=== PATIENT | male | born 1965 | race Caucasian/White ===

== ENCOUNTER 2024-09-22 10:57 | Emergency (ER) | payer SELFPAY ==
[2024-09-22 11:00] VITALS: BP 142/85
--- NOTE | 2024-09-22 11:29 | ED.GENMED ---
History of Present Illness
General
Chief Complaint: Blood and Body Fluid Exposure
Source: patient
Time Seen by Provider: 09/22/24 11:16
History of Present Illness
History of Present Illness:
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 The
patient is staying overnight in the hospital and therefore her blood testing is available. Patient denies any symptoms. He is up-to-date on his tetanus.
Past History
Social History
Personal:
Living: with family
Employment: Employed
Phy Exam
Physical Exam
Physical Exam:
GENERAL: Alert , in no apparent distress
NECK: Supple
ENT: mmm
CARDIAC: Regular rate and rhythm .
LUNGS: Clear breath sounds bilaterally, no acute respiratory distress, no wheezes/rales/rhonchi
NEUROLOGICAL: Alert and oriented, grossly nonfocal
SKIN: Warm and dry, very small (1 mm) area of skin disruption/needle penetration, no active bleed, no sts/ttp/warm/swelling/drainage.
MUSCULOSKELETAL: Well perfused.
PSYCH: Normal and appropriate interaction.
Course
Orders/Labs/Results
Orders:
Orders
09/22/24 11:26
Pt has had a significant HIV exposure? Routine
HIV Exposure is significant?: Yes
09/22/24 11:43
Complete Blood Count/No Diff Urgent
Comprehensive Metabolic Panel Urgent
HIV Combo Urgent
Hepatitis B Surface Antibody Urgent
Hepatitis B Surface Antigen Urgent
Hepatitis C Antibody Urgent
Vital Signs
Initial and Last Documented VS:
Initial Vital Signs
Temp Pulse Resp BP Pulse Ox
98.2 F 74 16 142/85 100
09/22/24 11:00 09/22/24 11:00 09/22/24 11:00 09/22/24 11:00 09/22/24 11:00
Last Documented Vital Signs
Temp Pulse Resp BP Pulse Ox
98.2 F 74 16 142/85 100
09/22/24 11:00 09/22/24 11:00 09/22/24 11:00 09/22/24 11:00 09/22/24 11:34
*Pulse Oximetry
SaO2: 100
Oxygen Mode of Delivery: Room air
Update Note
Update Note:
Patient presents to the Emergency Department with ___possible needlestick
Number and Complexity of Problems Addressed at the Encounter
� Chronic conditions affecting care:
� Acute Exacerbation and/or Progression of Chronic Illness:
� Differential Diagnosis includes: But not limited to tetanus exposure, hepatitis exposure, HIV exposure, laceration, etc. etc.
Amount and/or Complexity of Data to be Reviewed and Analyzed
� I performed an independent evaluation of and my interpretation is:
EKG:
CT:
Xrays:
Laboratory Studies:
Other:
� Review of other/old records reveals:
� Clinical information was obtained by an independent historian:
� Prescriptions/Medications Considered but not given:
� Further testing considered but not performed:
Risk of Complications and/or Morbidity or Mortality of Patient Management
� Social determinants of health affecting care:
� Discussion with other providers (PCP, Hospitalists, Consultants, etc):
� Escalation of care including admission/observation vs risk of discharge considered: Dr. Rodriguez has the patient's information available to us, RN will proceed with testing her blood and lab should have results within 1 hour
regarding her HIV status. We will pause on HIV prophylaxis in these results.
ED Attending Note
-
Portions of this chart may have been created with voice recognition software.� Occasional wrong word or��sound alike� substitutions may have occurred due to the inherent limitations of voice recognition software.
Discharge Plan
Departure
Patient Disposition: Home (Routine Discharge)
Date of Disposition: 09/22/24
Time of Disposition: 11:52
Patient with high blood pressure during this ER visit?: Yes
Condition: Good
Discharge Problem:
Exposure to blood or body fluid
Instructions: Exposure to HIV or hepatitis through blood or body fluids, BLOOD PRESSURE
Referrals:
NONE,* [Family Provider, Internal Medicine]
Stand Alone Forms: Bl/Fluid Consent/Declination, Blood Body/Fluid Exposure
Interventions
Interventions:
*Risk Screen - Suicide Last Done: 09/22/24 11:00
*Neglect/Abuse Screening Last Done: 09/22/24 11:00
Discharge Date and Time
Print Language: HAITIAN
[2024-09-22 11:55] LABS: Hematocrit 45.3 % (39.0-52.0); Hemoglobin 15.4 g/dL (13.0-18.0); Mean Corp Hgb Conc. 34.0 g/dL (33.0-37.0); Mean Corpuscular Volume 87.8 fL (80.0-94.0); Platelet Count 168 10^3/uL (130-400); Red Cell Dist. Width 12.4 % (11.5-14.5)
[2024-09-22 12:09] LABS: ALT (SGPT) 21 U/L (0-50); AST (SGOT) 26 U/L (17-59); Albumin 4.6 g/dl (3.5-5.0); Alkaline Phosphatase 71 U/L (38-126); Blood Urea Nitrogen 17 mg/dl (9-20); Calcium 9.2 mg/dl (8.4-10.2); Carbon Dioxide 25 mmol/L (22-30); Chloride 108 mmol/L (98-107); Glucose 111 mg/dl (70-99); Potassium 4.3 mmol/L (3.5-5.1); Sodium 140 mmol/L (135-145); Total Protein 7.1 g/dl (6.3-8.2); eGFR > 60.00
[2024-09-22 13:33] LABS: Hepatitis B Surface Antigen Negative (Negative)
[2024-09-22 13:50] LABS: Hepatitis C Antibody Negative (Negative)
== END 2024-09-22 12:30 | disposition home or self-care (01) ==
LOC: EMR 10:57
PROVIDERS: EMERGENCY PHYSICIAN Emergency Medicine
DX: S60.512A Abrasion of left hand, initial encounter (principal); W46.0XXA Contact with hypodermic needle, initial encounter; Y99.0 Civilian activity done for income or pay; Z77.21 Contact with and (suspected) exposure to potentially hazardous body fluids
CPT/HCPCS: 99283; 80053; 85027; 86706; 86803; 87340; 87389